=== PATIENT | male | born 1985 | race Caucasian/White ===

== ENCOUNTER 2018-10-22 13:40 | Day surgery (SDC) | payer SELFPAY ==
[2018-10-22] MEDS ORDERED: Sodium Chloride 0.9% 10 ML Syringe FLUSH PRN ×2 (14:06→20:27)
[2018-10-22] MEDS ORDERED: Sodium Chloride 0.9% 1,000 ML IV SCH (14:15)
--- NOTE | 2018-10-22 14:19 | EDM.PDOC ---
ED HPI GENERAL MEDICAL PROBLEM - General Chief Complaint: Gastrointestinal Problem Stated Complaint: ABD PAIN Time Seen by Provider: 10/22/18 13:49 Source of Information: Reports: Patient History Limitations: Reports: No Limitations - History of Present Illness INITIAL COMMENTS - FREE TEXT/NARRATIVE: 33 y/o male presents to ER with cc RLQ pain. He reports the pain started yesterday around 5 pm. He states he pain is worse when he takes a deep breath. He denies, nausea, vomiting, diarrhea, fever or chills. He reports having a normal BM today. Onset Date: 10/21/18 Onset Time: 17:00 Duration: Intermittent Location: Reports: Abdomen (rlq) Quality: Reports: Ache, Dull Severity: Mild Improves with: Reports: None Worsens with: Reports: Breathing Associated Symptoms: Denies: Cough, Fever/Chills, Loss of Appetite, Nausea/ Vomiting Right Lower Abdomen Pain Score (Numeric/FACES): 7 - Related Data Allergies Allergy/AdvReac Type Severity Reaction Status Date / Time No Known Allergies Allergy Verified 10/22/18 15:16 Home Meds: Home Meds . [No Known Home Meds] 10/22/18 [History] Past Medical History - Past Health History Medical/Surgical History: Denies Medical/Surgical History Musculoskeletal History: Reports: Fracture Other Musculoskeletal History: Nose, L clavicle, L wrist, Bilateral feet Social & Family History - Tobacco Use Smoking Status *Q: Never Smoker Second Hand Smoke Exposure: No - Caffeine Use Caffeine Use: Reports: Coffee - Recreational Drug Use Recreational Drug Use: No ED ROS GENERAL - Review of Systems Review Of Systems: See Below Constitutional: Denies: Fever, Chills HEENT: Reports: No Symptoms Respiratory: Reports: No Symptoms Cardiovascular: Reports: No Symptoms Endocrine: Reports: No Symptoms GI/Abdominal: Reports: Abdominal Pain. Denies: Constipation, Diarrhea : Reports: No Symptoms Musculoskeletal: Reports: No Symptoms Skin: Reports: No Symptoms Neurological: Reports: No Symptoms Psychiatric: Reports: No Symptoms Hematologic/Lymphatic: Reports: No Symptoms Immunologic: Reports: No Symptoms ED EXAM, GI/ABD - Physical Exam Exam: See Below Exam Limited By: No Limitations General Appearance: Alert, WD/WN, No Apparent Distress Neck: Normal Inspection, Supple, Non-Tender, Full Range of Motion Respiratory/Chest: No Respiratory Distress, Lungs Clear, Normal Breath Sounds, No Accessory Muscle Use, Chest Non-Tender Cardiovascular: Normal Peripheral Pulses, Regular Rate, Rhythm, No Edema, No Gallop, No JVD, No Murmur, No Rub GI/Abdominal Exam: Normal Bowel Sounds, Soft, No Distention, No Abnormal Bruit, No Mass, Pelvis Stable, Tender. No: Guarding (RLQ tenderness), Rigid, Rebound Back Exam: Normal Inspection, Full Range of Motion Extremities: Normal Inspection, Normal Range of Motion, Non-Tender, No Pedal Edema, Normal Capillary Refill Neurological: Alert, Oriented, CN II-XII Intact, Normal Cognition, Normal Gait, Normal Reflexes, No Motor/Sensory Deficits Psychiatric: Normal Affect, Normal Mood Skin Exam: Warm, Dry, Intact, Normal Color, No Rash Lymphatic: No Adenopathy Course - Vital Signs Last Recorded V/S: Last Vital Signs Temp 98.1 F 10/22/18 13:49 Pulse 65 10/22/18 13:49 Resp 20 10/22/18 13:49 BP 118/75 10/22/18 13:49 Pulse Ox 99 10/22/18 13:49 - Orders/Labs/Meds Orders: Active Orders 24 hr Category Date Time Status Sodium Chloride 0.9% [Normal Saline] 1,000 ml Med 10/22/18 14:15 Active IV ASDIRECTED Sodium Chloride 0.9% [Saline Flush] Med 10/22/18 14:06 Active 10 ml FLUSH ASDIRECTED PRN Saline Lock Insert [OM.PC] Routine Oth 10/22/18 14:06 Ordered Medication Orders Sodium Chloride (Normal Saline) 1,000 mls @ 150 mls/hr IV ASDIRECTED MARITZA Last Admin: 10/22/18 14:38 Dose: 150 mls/hr Sodium Chloride (Saline Flush) 10 ml FLUSH ASDIRECTED PRN PRN Reason: Keep Vein Open Last Admin: 10/22/18 14:38 Dose: 10 ml Labs: Laboratory Tests 10/22/18 10/22/18 Range/Units 14:15 14:15 WBC 12.58 H (4.23-9.07) K/mm3 RBC 5.66 (4.63-6.08) M/mm3 Hgb 16.7 (13.7-17.5) gm/L Hct 49.2 (40.1-51.0) % MCV 86.9 (79.0-92.2) fl MCH 29.5 (25.7-32.2) pg MCHC 33.9 (32.2-35.5) g/dl RDW Std Deviation 41.6 (35.1-43.9) fL Plt Count 268 (163-337) K/mm3 MPV 9.2 L (9.4-12.3) fl Neut % (Auto) 68.7 H (34.0-67.9) % Lymph % (Auto) 21.7 L (21.8-53.1) % [place] % (Auto) 8.7 (5.3-12.2) % Eos % (Auto) 0.4 L (0.8-7.0) Baso % (Auto) 0.3 (0.1-1.2) % Neut # (Auto) 8.64 H (1.78-5.38) K/mm3 Lymph # (Auto) 2.73 (1.32-3.57) K/mm3 [place] # (Auto) 1.09 H (0.30-0.82) K/mm3 Eos # (Auto) 0.05 (0.04-0.54) K/mm3 Baso # (Auto) 0.04 (0.01-0.08) K/mm3 Sodium 139 (136-145) mEq/L Potassium 3.8 (3.5-5.1) mEq/L Chloride 103 (98-107) mEq/L Carbon Dioxide 29 (21-32) mEq/L Anion Gap 10.8 (5-15) BUN 15 (7-18) mg/dL Creatinine 1.1 (0.7-1.3) mg/dL Est Cr Clr Drug Dosing 93.27 mL/min Estimated GFR (MDRD) > 60 (>60) mL/min BUN/Creatinine Ratio 13.6 L (14-18) Glucose 74 (74-106) mg/dL Calcium 9.6 (8.5-10.1) mg/dL Total Bilirubin 0.7 (0.2-1.0) mg/dL AST 20 (15-37) U/L ALT 39 (16-63) U/L Alkaline Phosphatase 83 (46-116) U/L Total Protein 8.4 H (6.4-8.2) g/dl Albumin 4.5 (3.4-5.0) g/dl Globulin 3.9 gm/dL Albumin/Globulin Ratio 1.2 (1-2) Lipase 318 (73-393) U/L Meds: Medications Generic Name Dose Route Start Last Admin Trade Name Freq PRN Reason Stop Dose Admin Sodium Chloride 1,000 mls @ 150 mls/hr 10/22/18 14:15 10/22/18 14:38 Normal Saline IV 150 mls/hr ASDIRECTED MARITZA Administration Sodium Chloride 10 ml 10/22/18 14:06 10/22/18 14:38 Saline Flush FLUSH 10 ml ASDIRECTED PRN Administration Keep Vein Open Discontinued Medications Generic Name Dose Route Start Last Admin Trade Name Freq PRN Reason Stop Dose Admin Diatrizoate Meglum/Diatrizoate Sod 90 ml 10/22/18 15:06 10/22/18 15:23 Gastrografin 37% PO 10/22/18 15:07 90 ml ONETIME ONE Administration Iopamidol 100 ml 10/22/18 15:06 10/22/18 15:25 Isovue-370 (76%) IV 10/22/18 15:07 100 ml ONETIME ONE Administration Sodium Chloride 10 ml 10/22/18 15:06 10/22/18 15:23 Saline Flush FLUSH 10/22/18 15:07 10 ml ONETIME ONE Administration - Re-Assessments/Exams Free Text/Narrative Re-Assessment/Exam: 10/22/18 16:17 WBC 12.58 RBC 5.66 H&H 16.7/49.2 Na+ 139 K+ 3.8 chloride 103 Co2 29 BUN 15 creatine 1.1 glucose [address] His Ab[address] findings are compatible with appendicitis. No abscess is seen at this time. I spoke with Dr. Kimo Ingram who will come and evaluate the patient. I discussed finding with patient. Departure - Departure Time of Disposition: 16:50 Disposition: DC/Tfer to [facility] Clinical Impression: Appendicitis Qualifiers: Appendicitis type: acute appendicitis Acute appendicitis type: unspecified acute appendicitis type Qualified Code(s): K35.80 - Unspecified acute appendicitis - Discharge Information - My Orders Last 24 Hours: My Active Orders 10/22/18 14:06 Sodium Chloride 0.9% [Saline Flush] 10 ml FLUSH ASDIRECTED PRN Saline Lock Insert [OM.PC] Routine 10/22/18 14:15 Sodium Chloride 0.9% [Normal Saline] 1,000 ml IV ASDIRECTED - Assessment/Plan Last 24 Hours: My Active Orders 10/22/18 14:06 Sodium Chloride 0.9% [Saline Flush] 10 ml FLUSH ASDIRECTED PRN Saline Lock Insert [OM.PC] Routine 10/22/18 14:15 Sodium Chloride 0.9% [Normal Saline] 1,000 ml IV ASDIRECTED
[2018-10-22] MEDS ORDERED: Iopamidol 755 Mg/ML 200 ML Bottle IV ONE (15:06)
[2018-10-22] MEDS ORDERED: Diatrizoate Meglumine/Diatrizoate Sodium 37% 120 ML Bottle PO ONE (15:06)
[2018-10-22] MEDS ORDERED: Sodium Chloride 0.9% 10 ML Syringe FLUSH ONE (15:06)
--- NOTE | 2018-10-22 15:44 | CT ---
CT abdomen and pelvis Technique: Multiple axial sections were obtained from above the dome of the diaphragm inferiorly through the pubic symphysis. Intravenous and oral contrast was utilized. Delayed images were also obtained through the pelvis. Findings: Appendix is mildly dilated with mild surrounding inflammatory change and wall thickening compatible with appendicitis. No fluid collections of abscess are seen at this time. Small portion of the visualized lung bases are clear. Liver shows no focal parenchymal abnormality. Gallbladder contains no calcified gallstones. Spleen appears within normal limits. Adrenal glands show no nodule. Pancreas is within normal limits. Aorta shows no aneurysm. Kidneys show symmetric contrast enhancement without hydronephrosis or mass. No retroperitoneal adenopathy or mesenteric abnormalities are seen. No pelvic mass or adenopathy is seen. Delayed images shows contrast within the distal ureters and within the bladder. 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 Impression: 1. Findings compatible with appendicitis. No abscess is seen at this time. 2. Other incidental finding as noted above. Diagnostic code #5
--- NOTE | 2018-10-22 17:03 | PCM.PREANE ---
Preanesthetic Assessment - Anesthesia/Transfusion/Family Hx Anesthesia History: Prior Anesthesia Without Reaction Family History of Anesthesia Reaction: No Transfusion History: No Prior Transfusion(s) Intubation History: Unknown - Review of Systems General: No Symptoms, Fatigue Pulmonary: No Symptoms Cardiovascular: No Symptoms Gastrointestinal: No Symptoms, Decreased Appetite Neurological: No Symptoms Other: Reports: None - Physical Assessment NPO Status Date: 10/22/18 NPO Status Time: 12:00 Pulse: 65 O2 Sat by Pulse Oximetry: 99 Respiratory Rate: 20 Blood Pressure: 118/75 Temperature: 36.7 C Vital Signs: Last Vital Signs Temp 36.7 C 10/22/18 13:49 Pulse 65 10/22/18 13:49 Resp 20 10/22/18 13:49 BP 118/75 10/22/18 13:49 Pulse Ox 99 10/22/18 13:49 Height: 1.73 m Weight: 88.451 kg ASA Class: 1E Mental Status: Alert & Oriented x3 Airway Class: Mallampati = 2 Dentition: Reports: Normal Dentition, Caries Thyro-Mental Finger Breadths: 3 Mouth Opening Finger Breadths: 3 ROM/Head Extension: Full Lungs: Clear to Auscultation, Normal Respiratory Effort Cardiovascular: Regular Rate, Regular Rhythm, No Murmurs - Lab Values: Laboratory Last Values WBC 12.58 K/mm3 (4.23-9.07) H 10/22/18 14:15 RBC 5.66 M/mm3 (4.63-6.08) 10/22/18 14:15 Hgb 16.7 gm/L (13.7-17.5) 10/22/18 14:15 Hct 49.2 % (40.1-51.0) 10/22/18 14:15 MCV 86.9 fl (79.0-92.2) 10/22/18 14:15 MCH 29.5 pg (25.7-32.2) 10/22/18 14:15 MCHC 33.9 g/dl (32.2-35.5) 10/22/18 14:15 RDW Std Deviation 41.6 fL (35.1-43.9) 10/22/18 14:15 Plt Count 268 K/mm3 (163-337) 10/22/18 14:15 MPV 9.2 fl (9.4-12.3) L 10/22/18 14:15 Neut % (Auto) 68.7 % (34.0-67.9) H 10/22/18 14:15 Lymph % (Auto) 21.7 % (21.8-53.1) L 10/22/18 14:15 [place] % (Auto) 8.7 % (5.3-12.2) 10/22/18 14:15 Eos % (Auto) 0.4 (0.8-7.0) L 10/22/18 14:15 Baso % (Auto) 0.3 % (0.1-1.2) 10/22/18 14:15 Neut # (Auto) 8.64 K/mm3 (1.78-5.38) H 10/22/18 14:15 Lymph # (Auto) 2.73 K/mm3 (1.32-3.57) 10/22/18 14:15 [place] # (Auto) 1.09 K/mm3 (0.30-0.82) H 10/22/18 14:15 Eos # (Auto) 0.05 K/mm3 (0.04-0.54) 10/22/18 14:15 Baso # (Auto) 0.04 K/mm3 (0.01-0.08) 10/22/18 14:15 Sodium 139 mEq/L (136-145) 10/22/18 14:15 Potassium 3.8 mEq/L (3.5-5.1) 10/22/18 14:15 Chloride 103 mEq/L (98-107) 10/22/18 14:15 Carbon Dioxide 29 mEq/L (21-32) 10/22/18 14:15 Anion Gap 10.8 (5-15) 10/22/18 14:15 BUN 15 mg/dL (7-18) 10/22/18 14:15 Creatinine 1.1 mg/dL (0.7-1.3) 10/22/18 14:15 Est Cr Clr Drug Dosing 93.27 mL/min 10/22/18 14:15 Estimated GFR (MDRD) > 60 mL/min (>60) 10/22/18 14:15 BUN/Creatinine Ratio 13.6 (14-18) L 10/22/18 14:15 Glucose 74 mg/dL (74-106) 10/22/18 14:15 Calcium 9.6 mg/dL (8.5-10.1) 10/22/18 14:15 Total Bilirubin 0.7 mg/dL (0.2-1.0) 10/22/18 14:15 AST 20 U/L (15-37) 10/22/18 14:15 ALT 39 U/L (16-63) 10/22/18 14:15 Alkaline Phosphatase 83 U/L (46-116) 10/22/18 14:15 Total Protein 8.4 g/dl (6.4-8.2) H 10/22/18 14:15 Albumin 4.5 g/dl (3.4-5.0) 10/22/18 14:15 Globulin 3.9 gm/dL 10/22/18 14:15 Albumin/Globulin Ratio 1.2 (1-2) 10/22/18 14:15 Lipase 318 U/L (73-393) 10/22/18 14:15 All lab values reviewed and noted and within acceptable ranges to proceed with procedure. - Allergies Allergies/Adverse Reactions: Allergies Allergy/AdvReac Type Severity Reaction Status Date / Time No Known Allergies Allergy Verified 10/22/18 15:16 - Anesthesia Plan Pre-Op Medication Ordered: None - Acknowledgements Anesthesia Type Planned: General Anesthesia Pt an Appropriate Candidate for the Planned Anesthesia: Yes Alternatives and Risks of Anesthesia Discussed w Pt/Guardian: Yes Pt/Guardian Understands and Agrees with Anesthesia Plan: Yes PreAnesthesia Questionnaire - Past Health History Medical/Surgical History: Denies Medical/Surgical History Musculoskeletal History: Reports: Fracture Other Musculoskeletal History: Nose, L clavicle, L wrist, Bilateral feet - SUBSTANCE USE Smoking Status *Q: Never Smoker Second Hand Smoke Exposure: No Recreational Drug Use History: No - HOME MEDS Home Medications: Home Meds . [No Known Home Meds] 10/22/18 [History] - CURRENT (IN HOUSE) MEDS Current Meds: Current Medications Sodium Chloride (Normal Saline) 1,000 mls @ 150 mls/hr IV ASDIRECTED MARITZA Last Admin: 10/22/18 14:38 Dose: 150 mls/hr Sodium Chloride (Saline Flush) 10 ml FLUSH ASDIRECTED PRN PRN Reason: Keep Vein Open Last Admin: 10/22/18 14:38 Dose: 10 ml Discontinued Medications Diatrizoate Meglum/Diatrizoate Sod (Gastrografin 37%) 90 ml PO ONETIME ONE Stop: 10/22/18 15:07 Last Admin: 10/22/18 15:23 Dose: 90 ml Iopamidol (Isovue-370 (76%)) 100 ml IV ONETIME ONE Stop: 10/22/18 15:07 Last Admin: 10/22/18 15:25 Dose: 100 ml Sodium Chloride (Saline Flush) 10 ml FLUSH ONETIME ONE Stop: 10/22/18 15:07 Last Admin: 10/22/18 15:23 Dose: 10 ml
[2018-10-22] MEDS ORDERED: Propofol 200 MG/20 ML SDV ONE (17:16)
[2018-10-22] MEDS ORDERED: Ketorolac 30 MG/ML SDV ONE (17:16)
[2018-10-22] MEDS ORDERED: Rocuronium 50 MG/5 ML Vial ONE (17:16)
[2018-10-22] MEDS ORDERED: Lactated Ringers 2,000 ML ONE (17:16)
[2018-10-22] MEDS ORDERED: Succinylcholine/Normal Saline 100 MG/5 ML Syringe ONE (17:16)
[2018-10-22] MEDS ORDERED: Ondansetron 4 MG/2 ML SDV ONE (17:16)
[2018-10-22] MEDS ORDERED: Lidocaine 1% 6 ML ONE (17:16)
[2018-10-22] MEDS ORDERED: HYDROmorphone 0.5 MG/0.5 ML Syringe ONE (17:16)
[2018-10-22] MEDS ORDERED: Dexamethasone 4 MG/ML 5 ML MDV ONE (17:16)
[2018-10-22] MEDS ORDERED: Midazolam 1 MG/ML 2 ML SDV ONE (17:17)
[2018-10-22] MEDS ORDERED: fentaNYL 250 MCG/5 ML SDV ONE (17:17)
[2018-10-22] MEDS ORDERED: Bupivacaine 0.5% 30 ML SDV ONE (17:48)
[2018-10-22] MEDS ORDERED: HYDROmorphone 0.5 MG/0.5 ML Syringe IVPUSH PRN (17:55)
[2018-10-22] MEDS ORDERED: Ondansetron 4 MG/2 ML SDV IVPUSH PRN (17:55)
[2018-10-22] MEDS ORDERED: ePHEDrine 50 MG/ML SDV IVPUSH PRN (17:55)
[2018-10-22] MEDS ORDERED: fentaNYL 100 MCG/2 ML SDV IVPUSH PRN (17:55)
[2018-10-22] MEDS ORDERED: diphenhydrAMINE 50 MG/ML SDV IVPUSH PRN (17:55)
[2018-10-22] MEDS ORDERED: Phenylephrine/Normal Saline 100 MCG/ML 10 ML Syringe ONE (17:56)
[2018-10-22] MEDS ORDERED: Neostigmine Methylsulfate 1 MG/ML 5 ML Syringe ONE (18:00)
[2018-10-22] MEDS ORDERED: Phenylephrine 1 MG in Sodium Chloride 0.9% 10 ML IV SCH (18:00)
--- NOTE | 2018-10-22 18:48 | PCM.POSTAN ---
POST ANESTHESIA ASSESSMENT - MENTAL STATUS Mental Status: Alert - VITAL SIGNS Pulse Rate: 69 SaO2: 99 (2LPM nasal cannula) Resp Rate: 9 Blood Pressure: 122/81 Temperature: 36.7 C - RESPIRATORY Respiratory Status: Respiratory Rate WNL, Airway Patent, O2 Saturation Stable, Supplemental Oxygen - CARDIOVASCULAR CV Status: Pulse Rate WNL, Blood Pressure Stable - GASTROINTESTINAL GI Status: No Symptoms - POST OP HYDRATION Hydration Status: Adequate & Stable
--- NOTE | 2018-10-22 18:53 | PCM48HPAN ---
Post Anesthesia Note - EVALUATION WITHIN 48HRS OF ANESTHETIC Vital Signs in Normal Range: Yes Patient Participated in Evaluation: Yes Respiratory Function Stable: Yes Airway Patent: Yes Cardiovascular Function Stable: Yes Hydration Status Stable: Yes Pain Control Satisfactory: Yes Nausea and Vomiting Control Satisfactory: Yes Mental Status Recovered: Yes
[2018-10-22] MEDS ORDERED: Metoclopramide 10 MG/2 ML SDV IV PRN (18:55)
[2018-10-22] MEDS ORDERED: Acetaminophen 325 MG Tab PO PRN (19:31)
[2018-10-22] MEDS ORDERED: Albuterol 0.083% 2.5 MG/3 ML Neb Soln NEB ONE (19:53)
[2018-10-22] MEDS ORDERED: Ibuprofen 600 MG Tab PO PRN (20:32)
--- NOTE | 2018-10-22 22:12 | OR ---
DATE OF OPERATION: 10/22/2018 SURGEON: Kimo Ingram MD PREOPERATIVE DIAGNOSIS: Acute appendicitis. POSTOPERATIVE DIAGNOSIS: Acute appendicitis with localized peritonitis. ANESTHESIA: General endotracheal intubation. OPERATION PERFORMED: Laparoscopic appendectomy. FINDINGS: He had acute appendicitis with periappendiceal inflammation and localized peritonitis. PATHOLOGY: Appendix. ESTIMATED BLOOD LOSS: 5 mL. COMPLICATIONS: None. DISPOSITION: Stable at the end of the procedure. INDICATION: The patient presented to the ED with a classic history of acute appendicitis. CT scan confirmed the diagnosis. He had mild leukocytosis. He had an appendicolith notable on the CT scan. We had a lengthy discussion regarding the risks, benefits, and alternatives. Please see my H and P for further details of that discussion. He gave informed consent. DESCRIPTION OF PROCEDURE: The patient was brought to the operating room and placed in the supine on the operating table. He was given general anesthesia and intubated. The abdomen was prepped and draped in the usual sterile fashion. A peritoneal insertion was undertaken in the left upper quadrant. Insufflation was obtained to a pressure of 15 mmHg with CO2 gas. I introduced a 12 mm optical port in the left lower quadrant. Under direct laparoscopic visualization, I identified the tissue planes as the port passed into the peritoneum. Two additional 5 mm ports were passed, one in the umbilicus and one in the suprapubic region, both under direct laparoscopic visualization. I immediately identified the appendix with my 5 mm 30-degree scope. The appendix was suppurative with some mild periappendiceal inflammation and peritonitis. The appendix was lifted and a [place] dissector was passed through the mesoappendix. I passed a linear cutter through that opening and transected the appendix at its exit from the cecum. I inspected the staple line and found it to be intact. Linear cutter vascular load was then passed, and the mesoappendix was controlled. The appendix was left temporarily in the patient while I controlled mild amount of ooze from the mesoappendiceal stump. Vascular clip appliers were applied for absolute hemostasis. At this point, the appendix was placed in an Endo Catch bag and retrieved through 12 mm port site. A thorough irrigation of the right lower quadrant and pelvis cleared away the small amount of bleeding which had occurred during the dissection. A Surgicel was left in place temporarily while I explored the abdomen. I found no injuries and no bleeding, and at this point, the Surgicel was removed. I inspected the staple line and found absolute hemostasis and an intact staple line. The 12 mm port site was closed with a stitch passer and a 0-Vicryl stitch under direct laparoscopic visualization. I then desufflated the gas and obliterated that defect by tying the suture down. Each of the port sites was then reapproximated with 4-0 Monocryl suture material as the gas was desufflated through the open ports. The incisions were covered with Dermabond after the skin was cleaned and dried. He had no complications and tolerated the procedure well. He was awakened from anesthesia and moved to Recovery in stable condition. KELTON /[id number]
--- NOTE | 2018-10-23 02:45 | PCM.SN ---
- Free Text/Narrative Note: Anesthesia Note: (late entry) Patient requiring extended floor stay due to decreased SPO2 on room air and c/o heaviness with breathing. Albuterol nebulizer treatment given in PACU, and symptoms still unresolved. Thank you. Sandra OCONNOR
--- NOTE | 2018-10-23 07:38 | PCM48HPAN ---
Post Anesthesia Note - EVALUATION WITHIN 48HRS OF ANESTHETIC Vital Signs in Normal Range: Yes Patient Participated in Evaluation: Yes Respiratory Function Stable: Yes Airway Patent: Yes Cardiovascular Function Stable: Yes Hydration Status Stable: Yes Pain Control Satisfactory: Yes Nausea and Vomiting Control Satisfactory: Yes Mental Status Recovered: Yes - COMMENTS/OBSERVATIONS Free Text/Narrative:: Patient sitting up at bedside ordering breakfast. No c/o noted at this time, O2 saturation levels remain stable on room air. Anticipate discharge this morning. Thank you. Sandra OCONNOR
--- NOTE | 2018-10-25 07:35 | HP ---
DATE OF ADMISSION: 10/22/2018 CHIEF COMPLAINT: Admitting diagnosis is acute appendicitis. HISTORY OF PRESENT ILLNESS: Brody is a 33-year-old male, who presents with a 12-hour history of abdominal pain. He said it started in a generalized location in the periumbilical region. Over the course of the night, and into the morning, the pain started in the right lower quadrant. Pain is constant, [id number] in intensity. It is not associated with nausea, vomiting, fever, or chills. He did have a little bit of anorexia today. However, he was unable to manage a full lunch around noon. He also reported 1 episode of loose bowel movement. He has had no other prodrome. Abdominal pain is not worsened when ambulating. He has had no prior episodes. He presented to the ED when the pain did not resolve. CT scan was performed with contrast showing an acute appendicitis. He has an appendolith as well with periappendiceal fat stranding and enlargement. PAST MEDICAL HISTORY: None. PAST SURGICAL HISTORY: [place] teeth extraction. ALLERGIES: To medications, none. CURRENT MEDICATIONS: Medications at home, he takes an occasional ibuprofen, a 200 mg tablet earlier today. REVIEW OF SYSTEMS: A 10-systems review was completely negative, except as listed above. FAMILY HISTORY: Unremarkable. His father has hypertension and had a motor vehicle collision resulting in multiple injuries, but there is no other significant family history. PHYSICAL EXAMINATION: GENERAL: He is alert and oriented, in no obvious distress. He looks quite comfortable. VITAL SIGNS: Within normal limits. HEAD AND NECK: Normocephalic and atraumatic. He is anicteric. PULMONARY: His lungs are clear to auscultation bilaterally. HEART: Regular rate and rhythm. No clicks, murmurs, or rubs. ABDOMEN: Soft. He has some mild tenderness in the right lower quadrant and right flank. No rebound. No guarding. Negative Rovsing sign. Negative psoas sign. No abdominal scars are present. EXTREMITIES: No clubbing, cyanosis, or edema. No calf tenderness. INTEGUMENTARY: No rashes. No lesions. No petechiae. No jaundice. NEUROLOGICAL: His cranial nerves are grossly intact. Nonfocal. Movement and strength as well as sensation are preserved in all 4 extremities. PSYCHIATRIC: He has appropriate affect and demeanor. LABORATORY DATA: Labs showed leukocytosis of 12,000 with a left shift. His chemistries are unremarkable. RADIOGRAPHIC STUDIES: CT scan showed a second dilated appendix with periappendiceal fat stranding and an appendolith consistent with acute appendicitis. ASSESSMENT: Acute appendicitis. PLAN: We discussed the conservative management. I did explain that we typically do not offer conservative management for appendolith because of the increased risks for recurrence. He is happy to have his appendix removed. I thoroughly discussed with him the major risks, benefits, and alternatives to surgery. These include, but are not limited to perforation of the bowel, bleeding or injury to other structures in the abdomen, hernias of the port sites, abscess formation, recurrent surgery, and many others. He gave informed consent. We will bring him to the operating room after an additional hour has to give his food time to settle. KELTON /[id number]
== END 2018-10-23 09:05 | disposition home or self-care (01) ==
LOC: JD.ED 13:40 → JD.SDS 16:47 → JD.MS 20:27 → JD.SDS 10-23 09:05
PROVIDERS: ATTEND Surgery
DX: K35.30 Acute appendicitis with localized peritonitis, without perforation or gangrene (principal)
CPT/HCPCS: 00840; 36415; 74177; 74177-26; 80053; 83690; 85025; 94640; 96360; 96361; 99285; 99285-25; A9270-GY; J0330; J0694; J1100; J1170; J1885; J2001; J2250; J2370; J2405; J2704; J2710; J3010; J3490; J7040; J7120; Q9963; Q9967